=== PATIENT | male | born 1960 | race Caucasian/White ===

== ENCOUNTER 2017-07-24 02:38 | Observation (INO) | payer BC ==
[~2017-07-24] VITALS: Ht 190.5 cm; Wt 101.2 kg
[2017-07-24 03:09] LABS: HEMATOCRIT 39.6 % (38.0-50.0); HEMOGLOBIN 13.7 G/DL (12.5-16.6); MCH 32.1 PG (29.0-34.0); MCHC 34.6 G/DL (30.0-36.0); MCV 92.7 FL (86-99); PLATELET COUNT 286 K/uL (156-360); RBC DIS.WIDTH-CV 13.2 % (11.8-14.6); RBC DIS.WIDTH-SD 44.5 % (39-53); RED BLOOD COUNT 4.27 M/uL (4.00-5.50); WHITE BLOOD COUNT 10.5 K/uL (4.1-10.2)
[2017-07-24 03:20] LABS: ALBUMIN 3.9 g/dL (3.2-4.8); CHLORIDE 108 mEq/L (99-109); POTASSIUM 4.1 mEq/L (3.7-5.4); SODIUM 140 mEq/L (136-147)
[2017-07-24 03:22] LABS: GLUCOSE 109 mg/dL (70-99); TOTAL PROTEIN 6.5 g/dL (6.4-8.3)
[2017-07-24 03:24] LABS: TOTAL BILIRUBIN 0.3 mg/dL (0.0-1.0)
[2017-07-24 03:26] LABS: ALKALINE PHOSPHATASE 84 IU/L (3-129); CREATININE 0.9 mg/dL (0.6-1.3); GFR ESTIMATE (CALCULATED) > 59 mL/min/ (58.99-99999)
[2017-07-24 03:27] LABS: UREA NITROGEN (BUN) 16 mg/dL (9-23)
[2017-07-24 03:28] LABS: AST (GOT) 22 IU/L (2-34)
[2017-07-24 03:29] LABS: ALT (GPT) 27 IU/L (3-49); LIPASE 15 U/L (1.0-51.0)
[2017-07-24 03:35] LABS: TROP-I INTERPRETATION NEGATIVE; TROPONIN-I < 0.01 ng/mL (0.0-0.30)
[2017-07-24 08:31] VITALS: BP 184/79
[2017-07-24 09:07] LABS: TROP-I INTERPRETATION NEGATIVE; TROPONIN-I 0.01 ng/mL (0.0-0.30)
[2017-07-24 09:12] LABS: HDL CHOLESTEROL 45 MG/DL (Desirable>=40); LDL CHOLESTEROL 174 mg/dL (Desirable<100); NON-HDL CHOLESTEROL 191 mg/dL (Desirable<160); TOTAL CHOLESTEROL 236 mg/dL (Desirable<200); TRIGLYCERIDES 83 MG/DL (Normal: <150)
[2017-07-24 11:57] VITALS: BP 148/65
[2017-07-24 15:42] LABS: TROP-I INTERPRETATION NEGATIVE; TROPONIN-I 0.01 ng/mL (0.0-0.30)
[2017-07-24] MEDS ORDERED: NICOTINE PATCH1 EAC2 TD (16:21)
[2017-07-24] MEDS ORDERED: LISINOPRIL10 MG PO (16:21)
[2017-07-24 16:30] VITALS: BP 150/75
== END 2017-07-24 19:27 | disposition home or self-care (01) ==
LOC: EME 02:38 → EDBD 02:38 → 5WEST 05:29 → EDOF 05:29 → ENRESERV 05:31 → 5WEST 07:38
PROVIDERS: Emergency Medicine; Physician Assistant Medical
DX: R07.89 Other chest pain (principal); J20.9 Acute bronchitis, unspecified; R94.31 Abnormal electrocardiogram [ECG] [EKG]; R20.0 Anesthesia of skin; R11.0 Nausea; I10 Essential (primary) hypertension; E78.5 Hyperlipidemia, unspecified; R91.1 Solitary pulmonary nodule; F17.210 Nicotine dependence, cigarettes, uncomplicated; Z85.828 Personal history of other malignant neoplasm of skin; Z85.820 Personal history of malignant melanoma of skin; Z82.3 Family history of stroke
CPT/HCPCS: 71275; 80053; 80061; 83690; 84484; 85027; 93005; 99281; 99285; G0378